=== PATIENT | male | born 1940 | race Caucasian/White ===

== ENCOUNTER 2016-12-31 07:30 | Day surgery (SDC) | payer OTHER, MEDICAID ==
[2016-12-31] MEDS ORDERED: levOFLOXACIN 500 MG/DEXTROSE 100 ML IV ONE (07:48)
[2016-12-31] MEDS ORDERED: LR 1,000 ML IV ONE (07:58)
[2016-12-31 08:19] VITALS: RESP 16
[2016-12-31] MEDS ORDERED: LIDOCAINE 1% 2 ML INJ ID PRN (08:21)
[2016-12-31] MEDS ORDERED: LIDOCAINE 2% JELLY 20 ML (UROJECT) ONE (08:22)
[2016-12-31] MEDS ORDERED: LIDOCAINE 1% 2 ML INJ ONE (08:24)
--- NOTE | 2016-12-31 08:30 | PDANEPAE ---
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 ANE Past Medical History - Cardiovascular History Hx Hypertension: Yes Hx Arrhythmias: No Hx Chest Pain: No Hx Coronary Artery / Peripheral Vascular Disease: No Hx CHF / Valvular Disease: No Hx Palpitations: No Cardiovascular History Comment: on Chol Rx - Pulmonary History Hx COPD: No Hx Asthma/Reactive Airway Disease: No Hx Recent Upper Respiratory Infection: No Hx Oxygen in Use at Home: No Hx Sleep Apnea: No Sleep Apnea Screening Result - Last Documented: Negative Pulmonary History Comment: quit smoking ' - Neurologic History Hx Cerebrovascular Accident: No Hx Seizures: No Hx Dementia: No - Endocrine History Hx Diabetes: No Hypothyroid: No Hyperthyroid: No Obesity: no - Renal History Hx Renal Disorders: Yes Renal History Comment: denies blood in urine-recent UTI'S. L nephrectomy due to atrophy 1956- normal Creat - Liver History Hx Hepatic Disorders: No - Neurological & Psychiatric Hx Hx Neurological and Psychiatric Disorders: Yes Neurological / Psychiatric History Comment: on duloxetine for neuropathy feet - Cancer History Hx Cancer: Yes Cancer History Comment: prostate - Congenital Disorder History Hx Congenital Disorders: Yes Congenital History Comment: L kidney atrophy - GI History GERD: no Hx Gastrointestinal Disorders: No Gastrointestinal History Comment: occ "cramping and gas" - Other Health History Other Health History: neuropathy feet - Chronic Pain History Chronic Pain: No - Surgical History Prior Surgeries: seeds implated -Prostate CA 2005. L total knee 2007. appy. L elbow sx-pin. nephrectomy-1956. inguinal hernia age 1 or 2 ANE Review of Systems Review of systems is: negative Review of Systems: - Exercise capacity Exercise capacity: >=4 METS METS (RN): 4 METS ANE Patient History - Allergies Allergies/Adverse Reactions: No Known Allergies Allergy (Verified 12/10/16 15:24) - Home Medications Home medications: home medication list seen and reviewed Home Medications: Aspirin EC [Aspirin EC 81 mg (*)] 81 mg PO DAILY 09/10/15 [Last Taken 12/23/16] Lovastatin [Altoprev] 40 mg PO HS 09/10/15 [Last Taken 12/30/16 09:00] QUEtiapine FUMARATE [Seroquel 50 mg (*)] 50 - 150 mg PO HS PRN 09/10/15 [Last Taken 12/31/16 02:00] Zolpidem Tartrate [Ambien 5MG (*)] 5 - 10 mg PO HS PRN 09/10/15 [Last Taken 09:00] amLODIPine BESYLATE [Norvasc 10 mg (*)] 10 mg PO DAILY 09/10/15 [Last Taken 05:00] DULoxetine 12/10/16 [Last Taken 12/30/16 12:00] Dicyclomine 12/10/16 [Last Taken 12/27/16] LYRICA 12/10/16 [Last Taken 12/31/16 05:00] - NPO status NPO Status: no food or drink >8 hours NPO Since - Liquids (Date): 12/30/16 NPO Since - Liquids (Time): 20:00 NPO Since - Solids (Date): 12/30/16 NPO Since - Solids (Time): 20:00 - Anes Hx Anes Hx: no prior problems - Smoking Hx Smoking Status: Former smoker - Alcohol Use Alcohol Use: None - Family Anes Hx Family Anes Hx: neg - N/A ANE Labs/Vital Signs - Vital Signs Vital Signs: reviewed preoperatively; see RN documention for details Blood Pressure: 149/70 Heart Rate: 54 Respiratory Rate: 16 O2 Sat (%): 93 Height: 177.8 cm Weight: 79.379 kg ANE Physical Exam - Airway Neck exam: FROM Mallampati Score: Class 2 Mouth exam: dentures, small mouth opening, abnormal chin - Pulmonary Pulmonary: no respiratory distress - Cardiovascular Cardiovascular: regular rate and rhythym - ASA Status ASA Status: III ANE Anesthesia Plan Anesthesia Plan: general endotracheal anesthesia, GA w LMA Total IV Anesthesia: No
[2016-12-31] MEDS ORDERED: PROPOFOL 200 MG/20 ML VIAL ONE ×2 (10:37→11:17)
[2016-12-31] MEDS ORDERED: fentaNYL 100 MCG/2 ML INJ ONE ×3 (10:37→11:53)
[2016-12-31] MEDS ORDERED: DEXAMETHASONE 4 MG/ML VIAL ONE (10:57)
[2016-12-31] MEDS ORDERED: ONDANSETRON 4 MG/2 ML VIAL ONE (10:57)
--- NOTE | 2016-12-31 11:37 | PDHPUP ---
History & Physical Update H&P update statement: This history and physical update is based on an assessment of the patient which was completed after admission or registration (within 24 hours), but prior to the surgery/procedure. H&P update: no change in patient's condition since H&P completed
--- NOTE | 2016-12-31 11:48 | POSTOPPROG ---
Post Op Note Date of Operation: 12/31/16 Surgeon: Terry Webster (# [id number]) Anesthesia: LMA Pre-op Diagnosis: Abnormal bladder lesions Post-op Diagnosis: Abnormal bladder lesions, 3 cm Procedure: TURBT Findings: See op note Inf/Abcess present in the surg proc area at time of surgery?: No EBL: Minimal (< 10 cc) Complications: None Specimen(s): Bladder lesions
[2016-12-31] MEDS ORDERED: ONDANSETRON 4 MG/2 ML VIAL IVP PRN (11:52)
[2016-12-31] MEDS ORDERED: LR 500 ML IV PRN (11:52)
[2016-12-31] MEDS ORDERED: NALOXONE HCL 0.4 MG/ML INJ IVP PRN (11:52)
[2016-12-31] MEDS: fentaNYL 100 MCG/2 ML INJ IVP PRN ×2 (11:59→12:05)
[2016-12-31] MEDS ORDERED: HYDROCODONE/APAP 5/325 TAB ONE ×2 (12:32→12:54)
--- NOTE | 2016-12-31 12:32 | GOP ---
[f rep st] OPERATIVE REPORT DATE OF OPERATION: 12/31/2016 SURGEON: Terry Webster MD ANESTHESIA: Laryngeal mask. PREOPERATIVE DIAGNOSIS: Abnormal bladder lesions. POSTOPERATIVE DIAGNOSIS: Abnormal bladder lesions. PROCEDURE PERFORMED: Transurethral resection of abnormal bladder lesions, 3 cm. FINDINGS: Abnormal erythematous bladder lesions, as noted in the body of the operative report. SPECIMENS: Bladder lesion biopsies. ESTIMATED BLOOD LOSS: Minimal. INDICATIONS: This gentleman recently underwent office cystoscopy and was found to have some abnormal bladder lesions, for which he was recommended to undergo intraoperative management. The indications for the procedures as well as potential risks and complications were discussed with the patient preo peratively. The patient appeared to understand, his questions were answered, and he wished to procee d. Written informed surgical consent was thereafter obtained. DESCRIPTION OF PROCEDURE: The patient was brought to the operating room and administered laryngeal m ask anesthesia. He was carefully placed in the dorsal lithotomy position on the cystoscopic table. The genital area was sterilely prepped with Betadine scrub and paint, then draped in the usual steril e fashion. Cystoscopy was performed with 30-degree and 70-degree lenses through a 22-Bulgarian sheath. Anterior urethra revealed no abnormalities. Posterior urethra revealed mild BPH. Examination of bl adder revealed some selected areas of abnormal erythema along the left anterolateral, left lateral, a nd left anterior aspect of the bladder wall. Examination of the remainder of bladder revealed no shelbi ors, no other foreign bodies. Right ureteral orifice was normal in regard to shape and position freddie g the trigone. Left ureteral orifice was absent. I then inserted flexible biopsy forceps and obtained signs sales representative biopsies of the abnormal erythema tous regions. After doing so, I then removed the cystoscope and inserted the 26-Bulgarian Uriarte rese ctoscope with a button electrode, after carefully dilating the anterior urethra with Waylon sounds up to 28-Bulgarian. I then used the button electrode to thoroughly fulgurate the biopsied regions as w ell as any abnormal remaining erythematous lesions seen along the mucosa of the bladder. At the conc lusion of the procedure, the bladder wall was hemostatic, no gross perforation of the bladder had occ urred as a result of the operative process, and the bladder was hemostatic. Instruments were removed , and 18-Bulgarian Champagne catheter inserted with 10 cc of sterile fluid placed in the balloon. The kathy ter irrigated manually and return at the end of case was nearly clear. The patient was then awakened , transferred to his bed, and then taken to the recovery room. He tolerated the procedure well overa ll. COMPLICATIONS: None. DISPOSITION: He was transferred to the recovery room in stable condition and will be instructed to r emove the Champagne catheter in 72 hours. He will follow up in my office as scheduled within the next co uple weeks. /[id number]/MODL
[2016-12-31] MEDS: HYDROCODONE/APAP 5/325 TAB PO PRN ×2 (12:35→12:55)
[2016-12-31] MEDS ORDERED: HYDROCODONE/APAP 5/325 TAB PO PRN (12:50)
[2016-12-31 13:39] VITALS: PULSE 58; TEMP 97.9
[2016-12-31 14:13] VITALS: BP 148/77; O2SAT 95
--- NOTE | 2016-12-31 16:07 | POSTANESTH ---
Post Anesthetic Evaluation Cardiovascular Status: Normal, Stable, Similar to Pre-Op Cond Respiratory Status: Normal, Stable, Similar to Pre-op Cond. Level of Consciousness/Mental Status: Can Participate in Eval, Alert and Oriented Pain Control: Adequate, Prn Tx Ordered Nausea/Vomiting Control: Adequate, Prn Tx Ordered Complications Possibly Related to Anesthesia: None Noted
== END 2016-12-31 14:23 | disposition home or self-care (01) ==
LOC: FSGY 07:30
PROVIDERS: ATTEND Specialist
PROC: 0TBB8ZX Excision of Bladder, Via Natural or Artificial Opening Endoscopic, Diagnostic (ICD-10-PCS; principal; 2016-12-31 09:45)
DX: C67.8 Malignant neoplasm of overlapping sites of bladder (principal); R33.9 Retention of urine, unspecified; R35.0 Frequency of micturition; R35.1 Nocturia; N18.9 Chronic kidney disease, unspecified; F41.8 Other specified anxiety disorders; Z87.440 Personal history of urinary (tract) infections; Z85.46 Personal history of malignant neoplasm of prostate; Z90.5 Acquired absence of kidney
CPT/HCPCS: J1100; J1956; J2405; J2704; J3010

== ENCOUNTER 2017-01-09 18:52 | Emergency (ER) | payer OTHER, MEDICAID ==
[2017-01-09 19:09] VITALS: RESP 16
--- NOTE | 2017-01-09 19:26 | EDPHY ---
H & P Stated Complaint: bladder surgery/tumor removal 12/31; hematuria since this afternoon Time Seen by Provider: 01/09/17 19:26 HPI/ROS: HPI: This is a 76-year-old male who presents with Chief Complaint: Passing blood in his urine Location: Quality: Blood in urine Duration: Started at 4:00 p.m. while hiking Signs and Symptoms: no fever, no nausea, no vomiting, no hematemesis, no blood in stool, no abdominal bloating, no diarrhea, no back pain, no urinary symptoms , no testicular/groin pain Timing: Sudden, slowly improving Severity: [id number] Context: Patient reports on 12/31/[address] Webster performed outpatient bladder surgery to remove a tumor. He was discharged with a Champagne catheter and leg bag. Why he was at the pharmacy obtaining his hydrocodone prescription the leg bag fell and pulled the Champagne tubing causing pain and blood in his Champagne bag. Patient reports that he went home and used a syringe to deflate the balloon and self removed the Champagne catheter several hours after surgery. He says that over the next 1-2 days the blood in his urine stopped. Today he went on a hike and around 4:00 p.m. he urinated and noticed blood along with clots. Since then he has urinated 2-3 times, and the amount of blood is slowly decreasing. He denies any dysuria/fever/testicular groin pain. He does not take any blood thinners. Modifying Factors: Comment: ROS: see HPI Constitutional: No fever, no chills, no weight loss Eyes: No blurred vision Respiratory: No shortness of breath, no cough Cardiovascular: No chest pain, no palpitations Gastrointestinal: No nausea, no vomiting, no diarrhea, no hematemesis, no blood in stool Genitourinary: No dysuria, no blood in urine Extremities: No myalgias, no edema Neurologic: No weakness, no numbness Skin: No rashes, no petechiae Hematologic: No bruising, no bleeding MEDICAL/SURGICAL/SOCIAL HISTORY: PMHx: Anxiety, depression, HTN PSHx: bladder surgery, L kidney removed Social history: Retired CONSTITUTIONAL: Pleasant elderly white male, awake and alert, no obvious distress HEENT: Atraumatic and normocephalic, PERRL, EOMI. Tympanic membranes clear. Oropharynx clear, no exudate and moist pink mucosa. Airway patent. No lymphadenopathy. No meningismus. Cardiovascular: Normal S1/S2, regular rate, regular rhythm, without murmur rub or gallop. PULMONARY/CHEST: Symmetrical and nontender. Clear to auscultation bilaterally. Good air movement. No accessory muscle usage. ABDOMEN: Soft, nondistended, nontender, no rebound, no guarding, no peritoneal signs, no masses or organomegaly. No CVAT. : Urethra with no discharge or bleeding. No testicular pain. EXTREMITIES: 2/2 pulses, strength 5/5, no deformities, no clubbing, no cyanosis or edema. NEUROLOGICAL: no focal neuro deficits. GCS 15. SKIN: Warm and dry, no erythema. no rash. Good capillary refill. Source: Patient Exam Limitations: No limitations - Personal History Current Tetanus/Diphtheria Vaccine: Unsure - Medical/Surgical History Hx Asthma: No Hx Chronic Respiratory Disease: No Hx Diabetes: No Hx Cardiac Disease: No Hx Renal Disease: Yes Hx Cirrhosis: No Hx Alcoholism: Yes Hx HIV/AIDS: No Hx Splenectomy or Spleen Trauma: No Other PMH: PMHx: Anxiety, depression, HTN. PSHx: bladder surgery, L kidney removed - Social History Smoking Status: Former smoker Constitutional: Initial Vital Signs Temperature (C) 36.6 C 01/09/17 19:06 Heart Rate 61 01/09/17 19:06 Respiratory Rate 16 01/09/17 19:06 Blood Pressure 173/80 H 01/09/17 19:06 O2 Sat (%) 93 01/09/17 19:06 O2 Delivery Mode Room Air Allergies/Adverse Reactions: No Known Allergies Allergy (Verified 12/10/16 15:24) Home Medications: Medication Instructions Recorded Lovastatin [Altoprev] 40 mg PO HS 09/10/15 QUEtiapine FUMARATE [Seroquel 50 50 - 150 mg PO HS PRN 09/10/15 mg (*)] Zolpidem Tartrate [Ambien 5MG (*)] 5 - 10 mg PO HS PRN 09/10/15 amLODIPine BESYLATE [Norvasc 10 mg 10 mg PO DAILY 09/10/15 (*)] DULoxetine 12/10/16 Dicyclomine 12/10/16 LYRICA 12/10/16 Hydrocodone/APAP 5/325 [Kamuela 1 - 2 tab PO Q6H PRN #14 tab 12/31/16 (*)] Medical Decision Making ED Course/Re-evaluation: Labs, urinalysis ordered Labs reviewed; H&H stable; creatinine noted 1.4 and is at baseline. Urinalysis shows RBCs and blood, trace bacteria; sent for urine culture. no signs of SRIRAM/electrolyte imbalance/coagulopathy/anemia/urinary retention Differential Diagnosis: Differential diagnosis includes but is not limited to trauma, over exertion, urinary tract infection. - Data Points Laboratory Results: Laboratory Results 01/09/17 19:45 01/09/17 19:45 01/09/17 01/09/17 01/09/17 19:45 19:45 19:45 WBC RBC Hgb Hct MCV MCH MCHC RDW Plt Count MPV Neut % (Auto) Lymph % (Auto) [place] % (Auto) Eos % (Auto) Baso % (Auto) Nucleat RBC Rel Count Absolute Neuts (auto) Absolute Lymphs (auto) Absolute Monos (auto) Absolute Eos (auto) Absolute Basos (auto) Absolute Nucleated RBC Immature Gran % Immature Gran # PT 13.6 SEC SEC (12.0-15.0) INR 1.05 (0.83-1.16) APTT 30.5 SEC SEC (23.0-38.0) Sodium 142 mEq/L mEq/L (134-144) Potassium 4.1 mEq/L mEq/L (3.5-5.2) Chloride 106 mEq/L mEq/L (97-110) Carbon Dioxide 22 mEq/l mEq/l (22-31) Anion Gap 14 mEq/L mEq/L (8-16) BUN 34 mg/dL H mg/dL (7-23) Creatinine 1.4 mg/dL H mg/dL (0.7-1.3) Estimated GFR 49 Glucose 114 mg/dL H mg/dL (70-100) Calcium 9.2 mg/dL mg/dL (8.5-10.4) Urine Color YELLOW Urine Appearance MODERATELY TURBID Urine pH 5.0 (5.0-7.5) Ur Specific [place] 1.014 (1.002-1.030) Urine Protein 1+ H (NEGATIVE) Urine Ketones NEGATIVE (NEGATIVE) Urine Blood 3+ H (NEGATIVE) Urine Nitrate NEGATIVE (NEGATIVE) Urine Bilirubin NEGATIVE (NEGATIVE) Urine Urobilinogen NEGATIVE EU EU (0.2-1.0) Ur Leukocyte Esterase TRACE H (NEGATIVE) Urine RBC 50-182 /hpf H /hpf (0-3) Urine WBC 50-182 /hpf H /hpf (0-3) Ur Epithelial Cells TRACE /lpf /lpf (NONE-1+) Urine Bacteria TRACE /hpf H /hpf (NONE SEEN) Hyaline Casts 1-5 /lpf /lpf (0-1) Urine Mucus TRACE /lpf /lpf (NONE-1+) Urine Glucose NEGATIVE (NEGATIVE) 01/09/17 19:45 WBC 10.30 10^3/uL H 10^3/uL (3.80-9.50) RBC 4.35 10^6/uL L 10^6/uL (4.40-6.38) Hgb 13.3 g/dL L g/dL (13.7-17.5) Hct 38.1 % L % (40.0-51.0) MCV 87.6 fL fL (81.5-99.8) MCH 30.6 pg pg (27.9-34.1) MCHC 34.9 g/dL g/dL (32.4-36.7) RDW 15.5 % H % (11.5-15.2) Plt Count 287 10^3/uL 10^3/uL (150-400) MPV 9.5 fL fL (8.7-11.7) Neut % (Auto) 56.4 % % (39.3-74.2) Lymph % (Auto) 28.1 % % (15.0-45.0) [place] % (Auto) 10.0 % % (4.5-13.0) Eos % (Auto) 4.1 % % (0.6-7.6) Baso % (Auto) 0.9 % % (0.3-1.7) Nucleat RBC Rel Count 0.0 % % (0.0-0.2) Absolute Neuts (auto) 5.82 10^3/uL 10^3/uL (1.70-6.50) Absolute Lymphs (auto) 2.89 10^3/uL 10^3/uL (1.00-3.00) Absolute Monos (auto) 1.03 10^3/uL H 10^3/uL (0.30-0.80) Absolute Eos (auto) 0.42 10^3/uL H 10^3/uL (0.03-0.40) Absolute Basos (auto) 0.09 10^3/uL 10^3/uL (0.02-0.10) Absolute Nucleated RBC 0.00 10^3/uL 10^3/uL (0-0.01) Immature Gran % 0.5 % % (0.0-1.1) Immature Gran # 0.05 10^3/uL 10^3/uL (0.00-0.10) PT INR APTT Sodium Potassium Chloride Carbon Dioxide Anion Gap BUN Creatinine Estimated GFR Glucose Calcium Urine Color Urine Appearance Urine pH Ur Specific [place] Urine Protein Urine Ketones Urine Blood Urine Nitrate Urine Bilirubin Urine Urobilinogen Ur Leukocyte Esterase Urine RBC Urine WBC Ur Epithelial Cells Urine Bacteria Hyaline Casts Urine Mucus Urine Glucose Departure - Departure Disposition: Home, Routine, Self-Care Clinical Impression: History of bladder surgery Hematuria Qualifiers: Hematuria type: unspecified type Qualified Code(s): R31.9 - Hematuria, unspecified Condition: Good Instructions: Hematuria (ED) Referrals: Gisela Decker NP [Primary Care Provider] - As per Instructions Terry Webster MD [Medical Doctor] - 2-3 days, call for appt.
[2017-01-09 20:01] LABS: PLATELET COUNT 287 10^3/uL (150-400)
[2017-01-09 20:10] LABS: INR 1.05 (0.83-1.16); PROTIME(PATIENT) 13.6 SEC (12.0-15.0)
[2017-01-09 20:33] VITALS: BP 149/80; PULSE 60; TEMP 98.2; O2SAT 97
== END 2017-01-09 20:33 | disposition home or self-care (01) ==
DX: L76.22 Postprocedural hemorrhage of skin and subcutaneous tissue following other procedure (principal); I10 Essential (primary) hypertension; Z87.891 Personal history of nicotine dependence

== ENCOUNTER 2017-05-06 11:22 | Observation (INO) | payer OTHER, MEDICAID ==
[2017-05-06] MEDS ORDERED: LR 1,000 ML IV ONE (12:06)
[2017-05-06] MEDS ORDERED: LIDOCAINE 2% JELLY 20 ML (UROJECT) ONE (12:19)
[2017-05-06] MEDS ORDERED: levOFLOXACIN 500 MG/DEXTROSE 100 ML IV ONE (13:05)
[2017-05-06] MEDS ORDERED: MIDAZOLAM 2 MG/2 ML VIAL IVP ONE (13:11)
--- NOTE | 2017-05-06 13:12 | PDANEPAE ---
ANE History of Present Illness bladder tumor ANE Past Medical History - Cardiovascular History Hx Hypertension: Yes Hx Arrhythmias: No Hx Chest Pain: No Hx Coronary Artery / Peripheral Vascular Disease: No Hx CHF / Valvular Disease: No Hx Palpitations: No Cardiovascular History Comment: high chol. pcp monitors bp meds - Pulmonary History Hx COPD: No Hx Asthma/Reactive Airway Disease: No Hx Recent Upper Respiratory Infection: No Hx Oxygen in Use at Home: No Hx Sleep Apnea: No Sleep Apnea Screening Result - Last Documented: Positive Pulmonary History Comment: damion triggers - Neurologic History Hx Cerebrovascular Accident: No Hx Seizures: No Hx Dementia: No Neurologic History Comment: peripheral neuropathy uses tramadol prn when hiking - Endocrine History Hx Diabetes: No - Renal History Hx Renal Disorders: Yes Renal History Comment: hematuria and passing of clots only when working out abdominal muscles. hx of uti's. hx of TURBT 12/31/16 with Melouk. L nephrectomy due to atrophy 1956. hx of prostate ca with radioactive seeds still in place - Liver History Hx Hepatic Disorders: No - Neurological & Psychiatric Hx Hx Neurological and Psychiatric Disorders: Yes Neurological / Psychiatric History Comment: anxiety - Cancer History Hx Cancer: Yes Cancer History Comment: prostate and bladder - Congenital Disorder History Hx Congenital Disorders: Yes Congenital History Comment: L kidney atrophy - GI History Hx Gastrointestinal Disorders: Yes Gastrointestinal History Comment: ibs- uses bentyl prn - Other Health History Other Health History: wears reading glasses. upper partial plate - Chronic Pain History Chronic Pain: No - Surgical History Prior Surgeries: 04/30/17 cystoscopy with Melouk. 12/31/16 TURBT with Melouk. seeds implated -Prostate CA 2004. L total knee 2007. appy. L elbow sx-pin. nephrectomy-1956. inguinal hernia age 1 or 2 ANE Review of Systems Review of Systems: - Exercise capacity METS (RN): 4 METS ANE Patient History - Allergies Allergies/Adverse Reactions: No Known Allergies Allergy (Verified 05/04/17 11:30) - Home Medications Home Medications: QUEtiapine FUMARATE [Seroquel 50 mg (*)] 100 - 150 mg PO HS PRN 09/10/15 [Last Taken 05/06/17] Zolpidem Tartrate [Ambien 5MG (*)] 10 mg PO HS 09/10/15 [Last Taken 1 Day Ago ~ 05/05/17] amLODIPine BESYLATE [Norvasc 10 mg (*)] 10 mg PO DAILY 09/10/15 [Last Taken 03/25] DULoxetine [Cymbalta 30 MG (*)] 30 mg PO HS #0 12/10/16 [Last Taken 1 Day Ago ~ 05/05/17] Dicyclomine [Bentyl 20 MG (*)] 20 mg PO DAILY PRN #0 12/10/16 [Last Taken ] Calcium Carb W/Vit D [Calcium Carb W/Vit D 500/200 (*)] 500 mg PO DAILY [Last Taken 05/04/17] Herbals/Supplements -Info Only 1 ea PO DAILY 05/04/17 [Last Taken 05/04/17] Lovastatin 40 mg PO HS 05/04/17 [Last Taken 1 Day Ago ~05/05/17] Multivitamins [Multivitamin (*)] 1 each PO DAILY 05/04/17 [Last Taken 05/04/17] [place]-3 Fatty Acids [Fish Oil 1000 mg (*)] 1,000 mg PO DAILY 05/04/17 [Last Taken 05/04/17] traMADol [Ultram 50 mg (*)] 50 mg PO DAILY PRN 05/04/17 [Last Taken 05/06/17] - NPO status NPO Since - Liquids (Date): 05/06/17 NPO Since - Liquids (Time): 10:30 NPO Since - Solids (Date): 05/06/17 NPO Since - Solids (Time): 03:00 - Anes Hx Anes Hx: no prior problems - Smoking Hx Smoking Status: Former smoker - Family Anes Hx Family Hx Anesthesia Complications: none ANE Labs/Vital Signs - Vital Signs Blood Pressure: 154/80 Heart Rate: 68 Respiratory Rate: 18 O2 Sat (%): 93 Height: 177.8 cm Weight: 81.647 kg ANE Physical Exam - Airway Mallampati Score: Class 2 Mouth exam: normal dental/mouth exam - Pulmonary Pulmonary: no respiratory distress - Cardiovascular Cardiovascular: regular rate and rhythym - ASA Status ASA Status: II ANE Anesthesia Plan Anesthesia Plan: GA w LMA
[2017-05-06] MEDS ORDERED: ONDANSETRON 4 MG/2 ML VIAL ONE (13:16)
[2017-05-06] MEDS ORDERED: ROCURONIUM 50 MG/5 ML VIAL ONE (13:16)
[2017-05-06] MEDS ORDERED: fentaNYL 100 MCG/2 ML INJ ONE (13:16)
[2017-05-06] MEDS ORDERED: DEXAMETHASONE 4 MG/ML VIAL ONE (13:16)
[2017-05-06] MEDS ORDERED: LIDOCAINE 2% 5 ML SDV ONE (13:16)
[2017-05-06] MEDS ORDERED: PROPOFOL 200 MG/20 ML VIAL ONE (13:17)
[2017-05-06] MEDS ORDERED: GLYCOPYRROLATE 0.2 MG/1 ML VIAL ONE ×2 (13:57)
[2017-05-06] MEDS ORDERED: fentaNYL 100 MCG/2 ML INJ IVP PRN (14:39)
[2017-05-06] MEDS ORDERED: ONDANSETRON 4 MG/2 ML VIAL IVP PRN (14:39)
[2017-05-06] MEDS ORDERED: NALOXONE HCL 0.4 MG/ML INJ IVP PRN (14:39)
[2017-05-06] MEDS ORDERED: ALBUTEROL 3 ML DEYVIAL IH PRN (14:39)
--- NOTE | 2017-05-06 14:40 | POSTANESTH ---
Post Anesthetic Evaluation Cardiovascular Status: Normal, Stable Respiratory Status: Normal, Stable Level of Consciousness/Mental Status: Can Participate in Eval Pain Control: Adequate, Prn Tx Ordered Nausea/Vomiting Control: Adequate, Prn Tx Ordered Complications Possibly Related to Anesthesia: None Noted
--- NOTE | 2017-05-06 14:42 | POSTOPPROG ---
Post Op Note Date of Operation: 05/06/17 Surgeon: Terry Webster (# [id number]) Anesthesia: LMA Pre-op Diagnosis: Large bladder tumor, h/o bladder CA & s/p BCG Post-op Diagnosis: Large bladder tumor, h/o bladder CA & s/p BCG Procedure: TURBT Findings: See op note Inf/Abcess present in the surg proc area at time of surgery?: No EBL: Minimal Complications: None Specimen(s): Bladder tumor
--- NOTE | 2017-05-06 15:29 | GOP ---
[f rep st] OPERATIVE REPORT DATE OF OPERATION: 05/06/2017 SURGEON: Terry Webster MD ANESTHESIA: Laryngeal mask. PREOPERATIVE DIAGNOSIS: 1. Large bladder tumor. 2. History of bladder urothelial carcinoma, status post resection and intravesical BCG. POSTOPERATIVE DIAGNOSIS: 1. Large bladder tumors. 2. History of bladder urothelial carcinoma, status post resection and intravesical BCG. PROCEDURE PERFORMED: Transurethral resection of large bladder tumor. FINDINGS: Approximately 5 cm bladder tumor along the left anterolateral wall. SPECIMENS: Bladder tumor. ESTIMATED BLOOD LOSS: Minimal. INDICATIONS: This gentleman was recently found to have a bladder tumor on surveillance cystoscopy fo llowing completion of induction BCG. It is unknown whether this tumor would be post reactive inflamm ation related to BCG or recurrent cancer. As a result, he presents for operative management. The in dications for the procedures as well as potential risks and complications were discussed with the pat ient preoperatively. He appeared to understand, his questions were answered, and he wished to procee d. Written informed surgical consent was thereafter obtained. DESCRIPTION OF PROCEDURE: The patient was brought to the operating room and administered laryngeal m ask anesthesia. He was carefully placed in the dorsal lithotomy position on the cystoscopic table. The genital area was sterilely prepped with Betadine scrub and paint, and then draped in usual steril e fashion. I dilated the anterior urethra carefully with Fidel sounds up to 26-[place]. Cystoure throscopy was then performed with 30-degree and 70-degree lenses through a 22-[place] sheath. Anterio r urethra was unremarkable. Posterior urethra revealed mild BPH. Examination of bladder revealed a sizable erythematous tumor with papillary changes along the left anterolateral wall. There were also some dystrophic calcifications noted along the most caudal aspect of this tumor. The tumor collecti vely measured at least 5 cm. Tracing Lathe Set Up Operator photos were obtained. These were placed in the patient' s office chart. The remainder of the bladder was unremarkable. The right ureteral orifice was concepción l in regard to shape and position along the trigone. Left ureteral orifice was surgically absent. I initially attempted to perform biopsies of the abnormal tumor with flexible cup forceps. However, n o sterile cup forceps could be found in the cystoscopic suite. Therefore, I decided to proceed with normal saline resection. The cystoscopic instruments were removed and the 26-[place] resectoscopic sh eath inserted, followed by insertion of the laser resectoscope in a standard resecting loop. I then carefully resected the tumor with the loop using passive continuous flow with normal saline. The bio psies were retrieved from the bladder using an Zivity evacuator. I then used a button electrode to th oroughly fulgurate the base of the resected tissue, as well as the surrounding tissue to ensure that all of the abnormal tissue had been completely either resected and/or cauterized. At the conclusion of procedure, the bladder was hemostatic. No gross perforation of bladder had ensued as a result of the operative process. All the resected tissue had been removed from the bladder and no residual abn ormal tissue was appreciated on the bladder wall. The instruments were removed and a 20-[place] 3-way Champagne catheter inserted with approximately 15 cc of sterile fluid placed in the balloon. The cathet er irrigated manually at the end of the case and the return was completely clear. The catheter was c onnected to bag drainage as well as continuous irrigation with normal saline. He was awakened, extub ated, transferred to his bed, then taken to the recovery room. He tolerated the procedure well overa ll. COMPLICATIONS: None. DISPOSITION: He was transferred to the recovery room in stable condition. /[id number]/MODL
[2017-05-06 16:45] VITALS: TEMP 98.2
[2017-05-06 16:47] VITALS: BP 136/80
[2017-05-06 16:59] VITALS: PULSE 59; RESP 14; O2SAT 92
== END 2017-05-06 16:50 | disposition home or self-care (01) ==
LOC: F1N 11:52
PROVIDERS: ADMIT Specialist; ATTEND Specialist
DX: C67.8 Malignant neoplasm of overlapping sites of bladder (principal); N18.9 Chronic kidney disease, unspecified; I12.9 Hypertensive chronic kidney disease with stage 1 through stage 4 chronic kidney disease, or unspecified chronic kidney disease; F32.9 Major depressive disorder, single episode, unspecified; M10.9 Gout, unspecified; F41.9 Anxiety disorder, unspecified; E78.5 Hyperlipidemia, unspecified; Z85.46 Personal history of malignant neoplasm of prostate; Z87.891 Personal history of nicotine dependence; Z87.440 Personal history of urinary (tract) infections; Z85.528 Personal history of other malignant neoplasm of kidney; Z96.652 Presence of left artificial knee joint; Z90.5 Acquired absence of kidney
CPT/HCPCS: 52240; J1100; J1956; J2250; J2405; J2704; J3010

== ENCOUNTER 2017-05-06 23:03 | Emergency (ER) | payer OTHER, MEDICAID ==
--- NOTE | 2017-05-06 23:19 | EDPHY ---
H & P - Medical/Surgical History Hx Asthma: No Hx Chronic Respiratory Disease: No Hx Diabetes: No Hx Cardiac Disease: No Hx Renal Disease: Yes Hx Cirrhosis: No Hx Alcoholism: Yes Hx HIV/AIDS: No Hx Splenectomy or Spleen Trauma: No Other PMH: PMHx: Anxiety, depression, HTN. PSHx: bladder surgery, L kidney removed - Social History Smoking Status: Former smoker Time Seen by Provider: 05/06/17 23:04 HPI/ROS: Chief complaint: Blood in urine History of present illness: This is a 77-year-old male who is brought to the emergency department by EMS for evaluation of blood in his urine. Patient underwent a surgery today for bladder cancer by Dr. Hedrick. A 3 way catheter was inserted. Ultimately he was discharged from the hospital. He was supposed to follow up with Dr. Hedrick next Wednesday. He states the catheter was uncomfortable and he removed on his own. He states he deflated the balloon and removed it appropriately. However since then he has had increasing blood in his urine. There is some clot passage. Mild discomfort. Review of systems: 10 point review of systems was obtained and other than described above was negative (Domenic Harris) - Physical Exam Exam: General Appearance: Alert and no distress. Eyes: Pupils equal and round no injection. Respiratory: Chest is non tender, lungs are clear to auscultation. Cardiac: regular rate and rhythm Gastrointestinal: Abdomen is soft and non tender, no masses, bowel sounds normal. Musculoskeletal: Neck is supple and non tender. Extremities have full range of motion and are non tender. Skin: No rashes or lesions. (Domenic Harris) Constitutional: Initial Vital Signs Temperature (C) 36.4 C 05/06/17 23:03 Heart Rate 69 05/06/17 23:03 Respiratory Rate 16 05/06/17 23:03 Blood Pressure 164/82 H 05/06/17 23:03 O2 Sat (%) 94 05/06/17 23:03 O2 Delivery Mode Room Air O2 (L/minute) 2 Allergies/Adverse Reactions: No Known Allergies Allergy (Verified 05/04/17 11:30) Home Medications: Medication Instructions Recorded QUEtiapine FUMARATE [Seroquel 50 100 - 150 mg PO HS PRN 09/09/ mg (*)] Zolpidem Tartrate [Ambien 5MG (*)] 10 mg PO HS 09/10/15 amLODIPine BESYLATE [Norvasc 10 mg 10 mg PO DAILY 09/10/15 (*)] DULoxetine [Cymbalta 30 MG (*)] 30 mg PO HS #0 12/10/16 Dicyclomine [Bentyl 20 MG (*)] 20 mg PO DAILY PRN #0 12/10/16 Calcium Carb W/Vit D [Calcium Carb 500 mg PO DAILY 05/04/17 W/Vit D 500/200 (*)] Herbals/Supplements -Info Only 1 ea PO DAILY 05/04/17 Lovastatin 40 mg PO HS 05/04/17 Multivitamins [Multivitamin (*)] 1 each PO DAILY 05/04/17 [place]-3 Fatty Acids [Fish Oil 1000 1,000 mg PO DAILY 05/04/17 mg (*)] traMADol [Ultram 50 mg (*)] 50 mg PO DAILY PRN 05/04/17 Hydrocodone/Acetaminophen [[place] 1 - 2 tab PO Q6H PRN #15 tab 05/06/17 5/325 (*)] Meth/Meblue/Sod Phos/Psal/Hyos 1 each PO QID #20 capsule 05/06/17 [Uribel Capsule] Medical Decision Making ED Course/Re-evaluation: Patient seen under the supervision of my secondary supervising physician Dr. Claudy Justin. Patient presents to the emergency department for hematuria after a urologic surgery today. He had a catheter placed at the hospital but removed it on his own as it was uncomfortable. I have consulted with on-call Urology Dr. Silva. He would like a three-way catheter reinserted, patient should be flushed out, if catheter is flowing patient can be discharged and follow up with Dr. Hedrick on Wednesday. (Domenic Harris) Other Provider: Patient has been irrigated. Few clots. He is otherwise draining. Will discharge with follow-up with Dr. Webster, Wednesday. (Claudy Putnam) - Data Points Medications Given: Discontinued Medications Calcium Carbonate (Tums) 500 mg PO EDNOW ONE Stop: 05/07/17 02:47 Last Admin: 05/07/17 02:49 Dose: 500 mg Lidocaine (Uroject Lidocaine 2% Jelly) 20 ml UR EDNOW ONE Stop: 05/07/17 00:06 Last Admin: 05/07/17 01:05 Dose: 20 ml Departure - Departure Disposition: Home, Routine, Self-Care Clinical Impression: Hematuria Condition: Good Instructions: Hematuria (ED) Additional Instructions: Follow-up with Dr. Hedrick on Wednesday as arranged already If symptoms worsen or new symptoms develop return to the emergency room for recheck Referrals: Patient,NotPresent [Unknown] - As per Instructions Terry Webster MD [Medical Doctor] - As per Instructions
[2017-05-07] MEDS ORDERED: LIDOCAINE 2% JELLY 20 ML (UROJECT) UR ONE (00:05)
[2017-05-07] MEDS ORDERED: CALCIUM CARBONATE 500 MG CHEWABLE TAB PO ONE (02:46)
[2017-05-07 04:21] VITALS: BP 154/78; PULSE 62; RESP 16; TEMP 98.1; O2SAT 91
== END 2017-05-07 04:26 | disposition home or self-care (01) ==
LOC: EDUNIT#
PROC: 0T9B70Z Drainage of Bladder with Drainage Device, Via Natural or Artificial Opening (ICD-10-PCS; principal; 2017-05-06)
DX: R31.9 Hematuria, unspecified (principal); I10 Essential (primary) hypertension; Z87.891 Personal history of nicotine dependence

== ENCOUNTER 2017-11-25 10:58 | Emergency (ER) | payer OTHER, MEDICAID ==
[2017-11-25] MEDS ORDERED: NS 500 ML IV ONE (11:17)
[2017-11-25 11:27] LABS: PLATELET COUNT 257 10^3/uL (150-400)
[2017-11-25 11:35] LABS: INR 1.03 (0.83-1.16); PROTIME(PATIENT) 13.7 SEC (12.0-15.0)
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
[2017-11-25 12:42] VITALS: BP 165/92
--- NOTE | 2017-11-25 13:47 | CPEKG ---
Test Reason : OPEN Blood Pressure : / mmHG Vent. Rate : 063 BPM Atrial Rate : 063 BPM P-R Int : 230 ms QRS Dur : 086 ms QT Int : 481 ms P-R-T Axes : 051 002 033 degrees QTc Int : 493 ms Sinus rhythm Prolonged MO interval Anterior infarct, old Confirmed by Rosalia Yung ([id number]) on 11/25/2017 1:47:36 PM Referred By: Confirmed By:Rosalia Yung
== END 2017-11-25 12:22 | disposition home or self-care (01) ==
LOC: EDUNIT#
DX: R41.82 Altered mental status, unspecified (principal); I10 Essential (primary) hypertension; R35.0 Frequency of micturition; F41.9 Anxiety disorder, unspecified; Z85.51 Personal history of malignant neoplasm of bladder; Z90.5 Acquired absence of kidney
CPT/HCPCS: 80305; G0480

== ENCOUNTER 2017-11-27 07:25 | Emergency (ER) | payer OTHER, MEDICAID ==
[2017-11-27 07:30] VITALS: BP 143/96
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
== END 2017-11-27 08:51 | disposition home or self-care (01) ==
DX: R30.0 Dysuria (principal); I10 Essential (primary) hypertension; Z90.5 Acquired absence of kidney; Z85.51 Personal history of malignant neoplasm of bladder